=== PATIENT | male | born 1980 | race Caucasian/White ===

== ENCOUNTER → 2016-09-20 | Outpatient (CLI) | payer OTHER | END | disposition home or self-care (01) | LOC: RAD 15:56 | PROVIDERS: ATTEND Physician Assistant Surgical | DX: S86.012A Strain of left Achilles tendon, initial encounter (principal); M25.472 Effusion, left ankle; X58.XXXA Exposure to other specified factors, initial encounter; Y93.89 Activity, other specified; Y92.89 Other specified places as the place of occurrence of the external cause; Y99.8 Other external cause status ==